=== PATIENT | female | born 1970 | race Caucasian/White ===

== ENCOUNTER 2018-06-07 23:36 | Observation (INO) | payer MEDICARE ==
[~2018-06-07] VITALS: Ht 157.5 cm; Wt 81.4 kg
--- NOTE | ~2018-06-07 | CN ---
PATIENT NAME:MEGAN MALIK MEDICAL RECORD: [id number] : 66 LOCATION:D.M3 D.1210 ADMIT DATE: 06/08/18 ACCOUNT: [id number] CONSULTING PHYSICIAN: MIKI ADAN MD REFERRING PHYSICIAN: BRYAN MAHAN MD DATE OF CONSULTATION: 06/08/2018 PSYCHIATRIC CONSULTATION IDENTIFYING DATA: The patient is 48 years old and she was admitted to the hospital on a voluntary basis. CHIEF COMPLAINT: None. HISTORY OF PRESENT ILLNESS: The patient has a long history of psychiatric disease. She has been followed by psychiatrists for many years and she has had numerous hospitalizations. Her most recent hospitalization was for depression at [facility] in early May. She was released from there and has had a hypotensive episode that has caused this hospitalization. She reports that she has heard voices on a continuous basis to one degree or another for many years. She says that the hallucinations are mild at this point. She says that she has been treated with many different medications with limited success. She does not have any command hallucinations. She does not have any thoughts of harming herself or others and when offered a transfer to inpatient psychiatric care to try to address her current needs, she feels it is not necessary saying she is doing as well as she ever does and that if things worsen, she would come to the Emergency Room. MENTAL STATUS EXAMINATION: The patient is awake, alert and oriented to person, place, time and situation. Her mood is flat. Her affect is constricted. Thought processes are circumstantial. Memory, concentration, and abstraction abilities are mildly impaired and she denies that she would seek to harm herself or others as well as overt psychotic symptoms. ASSESSMENT: Major depression versus bipolar disorder. PLAN: At this time, the patient is taking an antidepressant and I am going to leave the Paxil as it is. I am going to add to this a low dose of Risperdal and will ask that she have followup care with the [facility] where she is already an established patient. TRANSINT:[id number] Voice Confirmation ID: [id number] DOCUMENT ID: [id number] MIKI ADAN MD at [id number] CC: [id number] DICTATION DATE: 06/08/18 1353 FARROWING WORKER: 06/08/18 1401 ADM IN [facility] [address] [place] [address]
[2018-06-07] MEDS ORDERED: LISINOPRIL2.5 MG PO (23:41)
[2018-06-07] MEDS ORDERED: NAPROXEN250 MG PO (23:42)
[2018-06-07] MEDS ORDERED: IMIPRAMINE10 MG PO (23:42)
[2018-06-07] MEDS ORDERED: CITALOPRAM10 MG/5 ML (23:42)
[2018-06-07] MEDS ORDERED: INVEGA1.5 MG PO (23:42)
[2018-06-07] MEDS ORDERED: POTASSIUM99 M1 PO (23:42)
[2018-06-07] MEDS ORDERED: HYDROCHLOROTH12.5 M1 PO (23:42)
[2018-06-08 00:40] LABS: BASOPHILS 0.1 % (0-2); EOSINOPHILS 1.4 % (0-7); HEMATOCRIT 35.6 % (36.0-48.0); IMMATURE GRANULOCYTES 0.3 % (0-5); LYMPHOCYTES 15.6 % (15-50); MCH 29.5 pg (26.0-34.0); MCHC 33.7 g/dL (31.0-37.0); MCV 87.5 fL (80.0-100.0); MEAN PLATELET VOLUME 10.4 fL (7.4-10.4); MONOCYTES 9.9 % (2-11); NEUTROPHILS 72.7 % (40-80); PLATELET COUNT 198 10x3/uL (130-400); RBC 4.07 10x6/uL (4.00-5.40); RDW 13.9 % (11.5-14.5); WBC 11.8 10x3/uL (4.8-10.8)
[2018-06-08 00:51] LABS: ANION GAP 12.1 mmol/L (8-16); CALCIUM 7.9 mg/dL (8.5-10.1); CARBON DIOXIDE 26.9 mmol/L (21.0-32.0); CREATININE - SERUM 2.1 mg/dL (0.6-1.3)
[2018-06-08] MEDS ORDERED: CELEXA10 MG PO (02:43)
[2018-06-08 02:53] VITALS: BP 109/65; Ht 157.5 cm; Wt 81.4 kg
[2018-06-08 07:34] VITALS: BP 106/63
[2018-06-08] MEDS ORDERED: LISINOPRIL10 MG PO (10:48)
[2018-06-08] MEDS ORDERED: CELEXA20 MG PO (10:48)
[2018-06-08] MEDS ORDERED: HCTZ25 MG PO (10:48)
[2018-06-08] MEDS ORDERED: TOFRANIL25 MG PO (10:49)
[2018-06-08] MEDS ORDERED: INDERAL10 MG PO (10:49)
[2018-06-08] MEDS ORDERED: INVEGA6 MG/BLIST PO (10:49)
[2018-06-08 15:20] VITALS: BP 103/60
[2018-06-09 04:00] VITALS: BP 141/84
[2018-06-09 05:35] LABS: BASOPHILS 0.2 % (0-2); EOSINOPHILS 5.6 % (0-7); HEMATOCRIT 36.8 % (36.0-48.0); HEMOGLOBIN 12.2 g/dL (12-16); IMMATURE GRANULOCYTES 0.2 % (0-5); LYMPHOCYTES 45.2 % (15-50); MCH 29.3 pg (26.0-34.0); MCHC 33.2 g/dL (31.0-37.0); MCV 88.2 fL (80.0-100.0); MEAN PLATELET VOLUME 10.6 fL (7.4-10.4); MONOCYTES 9.2 % (2-11); NEUTROPHILS 39.6 % (40-80); PLATELET COUNT 219 10x3/uL (130-400); RBC 4.17 10x6/uL (4.00-5.40)
[2018-06-09 05:40] LABS: WBC 5.6 10x3/uL (4.8-10.8)
[2018-06-09 06:33] LABS: ALBUMIN 2.7 g/dL (3.4-5.0); BILIRUBIN - TOTAL 0.18 mg/dL (0.2-1.3); CALCIUM 8.1 mg/dL (8.5-10.1); CARBON DIOXIDE 24.5 mmol/L (21.0-32.0); POTASSIUM - SERUM 4.5 mmol/L (3.5-5.1); PROTEIN - SERUM 6.1 g/dL (6.4-8.2)
[2018-06-09 06:50] LABS: CREATININE - SERUM 0.9 mg/dL (0.6-1.3)
[2018-06-09 07:50] VITALS: BP 128/73
[2018-06-09 12:19] VITALS: BP 137/93
[2018-06-09] MEDS ORDERED: RISPERDAL1 MG PO (16:19)
[2018-06-09] MEDS ORDERED: PAXIL20 MG PO (16:19)
== END 2018-06-09 18:38 | disposition home or self-care (01) ==
LOC: D.ER 23:36 → OBSVTIME 06-08 01:24 → D.M3 06-08 01:24 → D.EDHOLD 06-08 01:24 → D.M3 06-08 01:24
PROVIDERS: Emergency Medicine; Family Medicine Adult Medicine
DX: S60.211A Contusion of right wrist, initial encounter (principal); W19.XXXA Unspecified fall, initial encounter; I95.9 Hypotension, unspecified; F17.200 Nicotine dependence, unspecified, uncomplicated; N28.9 Disorder of kidney and ureter, unspecified; F41.9 Anxiety disorder, unspecified